=== PATIENT | male | born 1945 | race Caucasian/White ===

== ENCOUNTER 2017-07-26 08:46 | Observation (INO) | payer BC, OTHER ==
[~2017-07-26] VITALS: Ht 180.3 cm; Wt 120.6 kg
[~2017-07-26 08:46] MED LIST: ASPIRIN81 M2 PO; ATORVASTATIN CA10 MG PO; BENADRYL25 MG PO; BENICAR5 MG PO; COUMADIN1 MG PO; COUMADIN5 MG PO; FLONASE16 G1 BOTH NARES; IRON325 MG PO; NEXIUM40 MG PO; OXYCODONE HCL5 MG PO; SENNA-TIME S T1 EACH PO; TYLENOL REGULA325 MG PO
[2017-07-26 11:59] LABS: HEMATOCRIT 48.5 % (38.0-50.0); MCH 31.4 PG (29.0-34.0); MCV 92.4 FL (86-99); MEAN PLAT.VOLUME 9.8 uM^3 (9.0-12.4); PLATELET COUNT 210 K/uL (156-360); RBC DIS.WIDTH-CV 13.1 % (11.8-14.6); RBC DIS.WIDTH-SD 44.3 % (39-53); RED BLOOD COUNT 5.25 M/uL (4.00-5.50); WHITE BLOOD COUNT 7.1 K/uL (4.1-10.2)
[2017-07-26 12:10] LABS: CHLORIDE 106 mEq/L (99-109); SODIUM 141 mEq/L (136-147)
[2017-07-26 12:12] LABS: GLUCOSE 93 mg/dL (70-99)
[2017-07-26 12:13] LABS: ANION GAP 11 MEQ/L (2-14)
[2017-07-26 12:16] LABS: GFR ESTIMATE (CALCULATED) 53 mL/min/
[2017-07-26 12:17] LABS: UREA NITROGEN (BUN) 22 mg/dL (9-23)
[2017-07-26] MEDS ORDERED: ESOMEPRAZOLE MA40 MG PO (13:14)
[2017-07-26] MEDS ORDERED: LIPITOR10 MG PO (13:15)
[2017-07-26] MEDS ORDERED: ASPIR 8181 M1 PO (13:15)
[2017-07-26] MEDS ORDERED: DIAZEPAM5 MG PO (13:16)
[2017-07-26] MEDS ORDERED: METAMUCIL POWD822 G1 PO (13:17)
[2017-07-26] MEDS ORDERED: ELIQUIS5 MG PO (13:18)
[2017-07-26] MEDS ORDERED: CRANBERRY TABL1 EACH PO (13:19)
[2017-07-26] MEDS ORDERED: ASCORBIC ACID100 MG PO (13:19)
[2017-07-26] MEDS ORDERED: MULTIVITAMIN1 EAC2 PO (13:19)
[2017-07-26 13:25] LABS: TROP-I INTERPRETATION NEGATIVE; TROPONIN-I < 0.01 ng/mL (0.0-0.30)
[2017-07-26 16:13] VITALS: BP 122/77
[2017-07-26 19:55] LABS: TROP-I INTERPRETATION NEGATIVE; TROPONIN-I < 0.01 ng/mL (0.0-0.30)
[2017-07-26 20:04] VITALS: BP 109/66
[2017-07-27 00:42] VITALS: BP 105/62
[2017-07-27 01:00] LABS: TROP-I INTERPRETATION NEGATIVE; TROPONIN-I < 0.01 ng/mL (0.0-0.30)
[2017-07-27 04:36] VITALS: BP 104/65
[2017-07-27 08:06] VITALS: BP 125/86
[2017-07-27 08:28] LABS: MCHC 34.6 G/DL (30.0-36.0); MCV 92.7 FL (86-99); PLATELET COUNT 220 K/uL (156-360); RBC DIS.WIDTH-CV 13.2 % (11.8-14.6); RBC DIS.WIDTH-SD 45.1 % (39-53); RED BLOOD COUNT 5.18 M/uL (4.00-5.50); WHITE BLOOD COUNT 6.4 K/uL (4.1-10.2)
[2017-07-27 08:53] LABS: ANION GAP 7 MEQ/L (2-14); CHLORIDE 103 MEQ/L (99-109); GFR ESTIMATE (CALCULATED) > 59 mL/min/; GLUCOSE 92 mg/dL (70-99); POTASSIUM 4.9 MEQ/L (3.7-5.4); SAMPLE HEMOLYSIS CHECK 0; SAMPLE ICTERIC CHECK 0; SAMPLE LIPEMIA CHECK 0; SODIUM 139 MEQ/L (136-147); UREA NITROGEN (BUN) 18 mg/dL (9-23)
[2017-07-27 09:16] LABS: ADD MIUA? NO; BILIRUBIN NEGATIVE; BLOOD NEGATIVE; COLOR YELLOW ((YELLOW)); GLUCOSE (STRIP) NEGATIVE; KETONES NEGATIVE; LEUKOCYTES NEGATIVE; NITRITE NEGATIVE; PROTEIN (STRIP) NEGATIVE; SPECIFIC GRAVITY 1.008 (1.000-1.030); UCUL ADDED? NO; UROBILINOGEN 0.2 MG/DL (0.2-1.0)
[2017-07-27 10:43] VITALS: BP 130/82
[2017-07-27 10:44] VITALS: BP 130/72; BP 132/80
[2017-07-27] MEDS ORDERED: ANTIVERT25 MG PO (13:59)
== END 2017-07-27 16:01 | disposition home or self-care (01) ==
LOC: EME 08:46 → 5SOUTH 12:23 → EDOF 12:23 → ENRESERV 12:25 → 5SOUTH 15:49
PROVIDERS: Internal Medicine; Physician Assistant; Physician Assistant Medical
DX: H81.02 Meniere's disease, left ear (principal); I48.91 Unspecified atrial fibrillation; I10 Essential (primary) hypertension; Z96.649 Presence of unspecified artificial hip joint; R27.0 Ataxia, unspecified; Z87.891 Personal history of nicotine dependence
CPT/HCPCS: 70450; 70551; 80048; 81003; 82607; 84484; 85027; 93005; 93306; 93880; 99281; 99285; G0378; J7030